=== PATIENT | female | born 1980 | race Caucasian/White ===

== ENCOUNTER 2018-04-16 11:31 | Inpatient (IN) ==
[2018-04-16] MEDS ORDERED: *HR* FentaNYL (PF) 100 MCG/2 ML VIAL IVP ONE (11:46)
[2018-04-16] MEDS ORDERED: Ondansetron 4 MG/2 ML VIAL IVP ONE (11:46)
[2018-04-16] MEDS ORDERED: Ketorolac 15 MG/ML VIAL IVP ONE (11:46)
--- NOTE | 2018-04-16 11:48 | Emergency Department Note ---
Disposition Clinical Impression: Kidney stone Disposition: Admitted As Inpatient Condition: Good General Adult HPI - General Chief complaint: ED Abdominal Pain Stated complaint: ABD Pain From UC Time Seen by Provider: 04/16/18 11:36 - History of Present Illness Pain Scale: 9 - Related Data Home Medications Medication Instructions Recorded Confirmed Cetirizine HCl/Pseudoephedrine 1 tab PO DAILY 04/16/18 04/16/18 [Eql All Day Allergy-D Tablet] Allergies Allergy/AdvReac Type Severity Reaction Status Date / Time sulfamethoxazole Allergy Hives Verified 04/16/18 11:36 [From Bactrim] trimethoprim [From Bactrim] Allergy Hives Verified 04/16/18 11:36 prednisone AdvReac Vomiting Verified 04/16/18 11:36 Past Medical History - Past Medical History Medical history: Reports: non-contributory, kidney stones Surgical history: Reports: ureteral stent Psychiatric history: Reports: no psych history 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 - Social History Smoking Status: Current every day smoker Smokeless Tobacco Status: No Alcohol use: Reports: none Drug use: Reports: none Course Vital Signs Temperature 98.2 F 04/16/18 11:34 Pulse Rate 117 04/16/18 11:34 Respiratory Rate 18 04/16/18 11:34 Blood Pressure 127/87 04/16/18 11:34 O2 Sat by Pulse Oximetry 100 04/16/18 11:34 Temperature 102.9 F H 04/16/18 18:40 Pulse Rate 126 04/16/18 18:40 Respiratory Rate 16 04/16/18 18:40 Blood Pressure 94/54 04/16/18 18:40 O2 Sat by Pulse Oximetry 91 04/16/18 18:40 Oxygen Delivery Oxygen Delivery Room Air Medical Decision Making - Lab Data Result diagrams: 04/16/18 12:18 04/16/18 12:18 Lab Results 04/16/18 04/16/18 04/16/18 Range/Units 12:01 12:18 12:18 WBC 26.2 H (4.3-11.1) K/mcL RBC 4.23 (3.82-4.97) M/mcL Hgb 12.4 (11.5-15.4) g/dL Hct 37.0 (35.3-44.9) % MCV 87.5 (83.0-100.0) fL MCH 29.3 (28.0-33.3) pg MCHC 33.5 (31.6-35.5) g/dL RDW 13.2 (11.5-14.5) % Plt Count 255 (140-400) K/mcL MPV 10.5 (9.4-12.4) fL Immature Gran % 0.7 (0-4) % Seg Neutrophils % 92.9 % Lymphocytes % 3.5 % Monocytes % 2.4 % Eosinophils % 0.3 % Basophils % 0.2 % Neutrophils # 24.3 H (1.6-8.9) K/mcL Lymphocytes # 0.9 (0.6-4.6) K/mcL Monocytes # 0.6 (0.0-1.3) K/mcL Eosinophils # 0.1 (0.0-0.6) K/mcL Basophils # 0.1 (0.0-0.2) K/mcL Platelet Estimate Normal (Normal) Hypochromasia Present A (Not Present) Sodium 135 L (136-145) mEq/L Potassium 3.7 (3.5-5.1) mEq/L Chloride 101 (98-107) mEq/L Carbon Dioxide 28 (23-29) mEq/L BUN 19 (6-20) mg/dL Creatinine 1.16 (0.60-1.20) mg/dL Est GFR ( Amer) > 60 (> 60) Est GFR (Non-Af Amer) 53 L (> 60) BUN/Creatinine Ratio 16 (6-26) Glucose 114 H (70-105) mg/dL Calculated Osmolality 283 (280-300) Lactic Acid (0.5-2.2) mmol/L Calcium 9.9 (8.6-10.3) mg/dL Total Bilirubin 0.5 (0.3-1.0) mg/dL AST 14 (13-39) Units/L ALT 13 (7-52) Units/L Alkaline Phosphatase 90 (34-104) Units/L Serum Total Protein 6.9 (6.4-8.9) g/dL Albumin 3.9 (3.5-5.7) g/dL Globulin 3.0 (2.4-3.5) g/dL Albumin/Globulin Ratio 1.3 (1.1-2.2) Serum , Qual (Negative) Urine Color Dark Yellow (Yellow) Urine Clarity Cloudy A (Clear) Urine pH 5.5 (5.0-8.0) pH Units Ur Specific [place] 1.022 (1.010-1.025) Urine Protein 100 H (Neg-Trace) mg/dL Urine Glucose (UA) Normal (Normal) mg/dL Urine Ketones Negative (Negative) mg/dL Urine Blood Small H (Negative) Urine Nitrite Negative (Negative) Urine Bilirubin Negative (Negative) Urine Urobilinogen Normal (Normal) mg/dL Ur Leukocyte Esterase Moderate H (Negative) Urine Microscopic RBC 3-5 H (0-3) per hpf Urine Microscopic WBC TNTC H (0-3) per hpf Ur Squamous Epith Cells Many H (None-Few) per lpf Urine Bacteria Few (None-Few) per hpf Hyaline Casts None Seen (None-Few) per lpf 04/16/18 04/16/18 Range/Units 12:18 19:09 WBC (4.3-11.1) K/mcL RBC (3.82-4.97) M/mcL Hgb (11.5-15.4) g/dL Hct (35.3-44.9) % MCV (83.0-100.0) fL MCH (28.0-33.3) pg MCHC (31.6-35.5) g/dL RDW (11.5-14.5) % Plt Count (140-400) K/mcL MPV (9.4-12.4) fL Immature Gran % (0-4) % Seg Neutrophils % % Lymphocytes % % Monocytes % % Eosinophils % % Basophils % % Neutrophils # (1.6-8.9) K/mcL Lymphocytes # (0.6-4.6) K/mcL Monocytes # (0.0-1.3) K/mcL Eosinophils # (0.0-0.6) K/mcL Basophils # (0.0-0.2) K/mcL Platelet Estimate (Normal) Hypochromasia (Not Present) Sodium (136-145) mEq/L Potassium (3.5-5.1) mEq/L Chloride (98-107) mEq/L Carbon Dioxide (23-29) mEq/L BUN (6-20) mg/dL Creatinine (0.60-1.20) mg/dL Est GFR ( Amer) (> 60) Est GFR (Non-Af Amer) (> 60) BUN/Creatinine Ratio (6-26) Glucose (70-105) mg/dL Calculated Osmolality (280-300) Lactic Acid 2.2 (0.5-2.2) mmol/L Calcium (8.6-10.3) mg/dL Total Bilirubin (0.3-1.0) mg/dL AST (13-39) Units/L ALT (7-52) Units/L Alkaline Phosphatase (34-104) Units/L Serum Total Protein (6.4-8.9) g/dL Albumin (3.5-5.7) g/dL Globulin (2.4-3.5) g/dL Albumin/Globulin Ratio (1.1-2.2) Serum , Qual Negative (Negative) Urine Color (Yellow) Urine Clarity (Clear) Urine pH (5.0-8.0) pH Units Ur Specific [place] (1.010-1.025) Urine Protein (Neg-Trace) mg/dL Urine Glucose (UA) (Normal) mg/dL Urine Ketones (Negative) mg/dL Urine Blood (Negative) Urine Nitrite (Negative) Urine Bilirubin (Negative) Urine Urobilinogen (Normal) mg/dL Ur Leukocyte Esterase (Negative) Urine Microscopic RBC (0-3) per hpf Urine Microscopic WBC (0-3) per hpf Ur Squamous Epith Cells (None-Few) per lpf Urine Bacteria (None-Few) per hpf Hyaline Casts (None-Few) per lpf Attestation Statement - Attestation Attestation: I examined this patient and my medical decision-making was reviewed with the Resident Physician. I agree with the documented findings, disposition and treatment plan as described except to the extent set forth below. [id number] time provided Patient arrives complaining of right-sided flank pain radiating to her right lower quadrant. She was sent from the urgent care. She is very uncomfortable appearing on exam. She has a history of recurrent kidney stones requiring extraction.
[2018-04-16 12:20] LABS: Bilirubin,Urine Negative (Negative); Blood,Urine Small (Negative); Clarity,Urine Cloudy (Clear); Color,Urine Dark Yellow (Yellow); Glucose,Urine (UA) Normal (Normal); Ketones,Urine Negative (Negative); Leukocyte Esterase,Urine Moderate (Negative); Nitrite,Urine Negative (Negative); PH,Urine 5.5 pH Units (5.0-8.0); Protein,Urine 100 mg/dL (Neg-Trace); Specific Gravity,Urine 1.022 (1.010-1.025); Urobilinogen,Urine Normal (Normal)
--- NOTE | 2018-04-16 12:20 | Emergency Department Note ---
Disposition Clinical Impression: Kidney stone Disposition: Admitted As Inpatient Condition: Good Forms: ED Satisfaction Letter, Work/School Release Time of Disposition: 14:50 General Adult HPI - General Chief complaint: ED Abdominal Pain Stated complaint: ABD Pain From UC Time Seen by Provider: 04/16/18 11:36 Source: patient, family Mode of arrival: ambulatory Limitations: no limitations Nursing Notes Reviewed: Yes Vital Signs Reviewed: Yes - History of Present Illness HPI Narrative: 37 yo female presents as a transfer patient from [facility] with the chief complaint of abdominal pain. She states she has a history of 8 kidney stones and her back pain feels similar to previous kidney stones. She states this is somewhat different than her normal kidney stones though because she is also having right lower abdominal pain, fever, chills, chest pain. She feels nauseous but has not vomited. She states her whole body hurts and she has never felt like this before. She rates this pain as a 10 out of 10. She took 2 Tylenol this morning without significant relief of her pain. At [place] they tested her urine and then transferred her here because she says they found a UTI. She does admit to some dysuria but does not note any blood in her urine. Pain Scale: 9 - Related Data Home Medications Medication Instructions Recorded Confirmed Cetirizine HCl/Pseudoephedrine 1 tab PO DAILY 04/16/18 04/16/18 [Eql All Day Allergy-D Tablet] Allergies Allergy/AdvReac Type Severity Reaction Status Date / Time sulfamethoxazole Allergy Hives Verified 04/16/18 11:36 [From Bactrim] trimethoprim [From Bactrim] Allergy Hives Verified 04/16/18 11:36 prednisone AdvReac Vomiting Verified 04/16/18 11:36 All systems ED: reviewed and negative except as stated. Review of Systems: As Per HPI Constitutional: Reports: fever, chills, weakness Eyes: Denies: vision change Cardiovascular: Reports: chest pain. Denies: palpitations, dyspnea on exertion, orthopnea, syncope Respiratory: Denies: cough, dyspnea, wheezes Gastrointestinal: Reports: abdominal pain, nausea. Denies: vomiting, diarrhea, constipation Genitourinary: Reports: dysuria. Denies: hematuria Musculoskeletal: Reports: back pain. 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 Absent: tenderness, meningismus, lymphadenopathy - Chest Chest inspection: Present: normal inspection, tenderness. Absent: rash - Respiratory Respiratory exam: Present: normal lung sounds bilaterally. Absent: wheezes - Cardiovascular Cardiovascular exam: Present: normal rhythm, tachycardia - Abdominal Exam Abdominal exam: Present: soft, tenderness. Absent: distention, guarding, rebound, rigidity, Teresa's sign Abdominal tenderness: Present: RLQ - Extremities Exam Extremities exam: Present: normal inspection. Absent: tenderness, pedal edema - Back Exam Back exam: Present: CVA tenderness (R), CVA tenderness (L). Absent: muscle spasm, vertebral tenderness - Neurological Exam Neurological exam: Present: alert, oriented X3, CN II-XII intact - Psychiatric Psychiatric exam: Present: anxious - Skin Skin exam: Present: warm, intact, diaphoresis Course Vital Signs Temperature 98.2 F 04/16/18 11:34 Pulse Rate 117 04/16/18 11:34 Respiratory Rate 18 04/16/18 11:34 Blood Pressure 127/87 04/16/18 11:34 O2 Sat by Pulse Oximetry 100 04/16/18 11:34 Temperature 98.2 F 04/16/18 11:34 Pulse Rate 117 04/16/18 11:34 Respiratory Rate 18 04/16/18 11:34 Blood Pressure 127/87 04/16/18 11:34 O2 Sat by Pulse Oximetry 100 04/16/18 11:34 Oxygen Delivery Oxygen Delivery Room Air Medical Decision Making - [facility] Narrative Medical decision making narrative: This is a patient with a history of kidney stones who is complaining of bilateral back pain, abdominal pain, fevers. There is concern for recurrent kidney stone as well as pyelonephritis or other intra-abdominal source of infection. We will do screening labs as well as urine, urine , CT of the abdomen and pelvis without contrast. We will give her fentanyl, Toradol, Zofran for her pain and nausea. 1344-the patient was reevaluated and her pain is moderately well-controlled. She states she is still having some waves of pain but she is much more comfortable now. Labs showed a leukocytosis which could just be due to a stress response. Urine was a dirty sample not concerning for infection. CT scan showed a 7 mm obstructing stone on the left side. We will consult urology to see if they will see this patient as an outpatient. 1400 - spoke with Dr. Carlos from urology who states that they will see the patient after she is admitted to the hospitalist. Hospitalist has been paged at this time. 1450 - spoke with the hospitalist Dr. Gallardo who is agreed to accept this patient. He requests the patient be started on Rocephin, which we will give here in the ER. - Medical Records Medical records reviewed: Yes I reviewed the patient's medical records. - Lab Data Lab results reviewed: Yes I reviewed the patient's lab results. Result diagrams: 04/16/18 12:18 04/16/18 12:18 Lab Results 04/16/18 04/16/18 04/16/18 Range/Units 12:01 12:18 12:18 WBC 26.2 H (4.3-11.1) K/mcL RBC 4.23 (3.82-4.97) M/mcL Hgb 12.4 (11.5-15.4) g/dL Hct 37.0 (35.3-44.9) % MCV 87.5 (83.0-100.0) fL MCH 29.3 (28.0-33.3) pg MCHC 33.5 (31.6-35.5) g/dL RDW 13.2 (11.5-14.5) % Plt Count 255 (140-400) K/mcL MPV 10.5 (9.4-12.4) fL Immature Gran % 0.7 (0-4) % Seg Neutrophils % 92.9 % Lymphocytes % 3.5 % Monocytes % 2.4 % Eosinophils % 0.3 % Basophils % 0.2 % Neutrophils # 24.3 H (1.6-8.9) K/mcL Lymphocytes # 0.9 (0.6-4.6) K/mcL Monocytes # 0.6 (0.0-1.3) K/mcL Eosinophils # 0.1 (0.0-0.6) K/mcL Basophils # 0.1 (0.0-0.2) K/mcL Platelet Estimate Normal (Normal) Hypochromasia Present A (Not Present) Sodium 135 L (136-145) mEq/L Potassium 3.7 (3.5-5.1) mEq/L Chloride 101 (98-107) mEq/L Carbon Dioxide 28 (23-29) mEq/L BUN 19 (6-20) mg/dL Creatinine 1.16 (0.60-1.20) mg/dL Est GFR ( Amer) > 60 (> 60) Est GFR (Non-Af Amer) 53 L (> 60) BUN/Creatinine Ratio 16 (6-26) Glucose 114 H (70-105) mg/dL Calculated Osmolality 283 (280-300) Calcium 9.9 (8.6-10.3) mg/dL Total Bilirubin 0.5 (0.3-1.0) mg/dL AST 14 (13-39) Units/L ALT 13 (7-52) Units/L Alkaline Phosphatase 90 (34-104) Units/L Serum Total Protein 6.9 (6.4-8.9) g/dL Albumin 3.9 (3.5-5.7) g/dL Globulin 3.0 (2.4-3.5) g/dL Albumin/Globulin Ratio 1.3 (1.1-2.2) Serum , Qual (Negative) Urine Color Dark Yellow (Yellow) Urine Clarity Cloudy A (Clear) Urine pH 5.5 (5.0-8.0) pH Units Ur Specific [place] 1.022 (1.010-1.025) Urine Protein 100 H (Neg-Trace) mg/dL Urine Glucose (UA) Normal (Normal) mg/dL Urine Ketones Negative (Negative) mg/dL Urine Blood Small H (Negative) Urine Nitrite Negative (Negative) Urine Bilirubin Negative (Negative) Urine Urobilinogen Normal (Normal) mg/dL Ur Leukocyte Esterase Moderate H (Negative) Urine Microscopic RBC 3-5 H (0-3) per hpf Urine Microscopic WBC TNTC H (0-3) per hpf Ur Squamous Epith Cells Many H (None-Few) per lpf Urine Bacteria Few (None-Few) per hpf Hyaline Casts None Seen (None-Few) per lpf 04/16/18 Range/Units 12:18 WBC (4.3-11.1) K/mcL RBC (3.82-4.97) M/mcL Hgb (11.5-15.4) g/dL Hct (35.3-44.9) % MCV (83.0-100.0) fL MCH (28.0-33.3) pg MCHC (31.6-35.5) g/dL RDW (11.5-14.5) % Plt Count (140-400) K/mcL MPV (9.4-12.4) fL Immature Gran % (0-4) % Seg Neutrophils % % Lymphocytes % % Monocytes % % Eosinophils % % Basophils % % Neutrophils # (1.6-8.9) K/mcL Lymphocytes # (0.6-4.6) K/mcL Monocytes # (0.0-1.3) K/mcL Eosinophils # (0.0-0.6) K/mcL Basophils # (0.0-0.2) K/mcL Platelet Estimate (Normal) Hypochromasia (Not Present) Sodium (136-145) mEq/L Potassium (3.5-5.1) mEq/L Chloride (98-107) mEq/L Carbon Dioxide (23-29) mEq/L BUN (6-20) mg/dL Creatinine (0.60-1.20) mg/dL Est GFR ( Amer) (> 60) Est GFR (Non-Af Amer) (> 60) BUN/Creatinine Ratio (6-26) Glucose (70-105) mg/dL Calculated Osmolality (280-300) Calcium (8.6-10.3) mg/dL Total Bilirubin (0.3-1.0) mg/dL AST (13-39) Units/L ALT (7-52) Units/L Alkaline Phosphatase (34-104) Units/L Serum Total Protein (6.4-8.9) g/dL Albumin (3.5-5.7) g/dL Globulin (2.4-3.5) g/dL Albumin/Globulin Ratio (1.1-2.2) Serum , Qual Negative (Negative) Urine Color (Yellow) Urine Clarity (Clear) Urine pH (5.0-8.0) pH Units Ur Specific [place] (1.010-1.025) Urine Protein (Neg-Trace) mg/dL Urine Glucose (UA) (Normal) mg/dL Urine Ketones (Negative) mg/dL Urine Blood (Negative) Urine Nitrite (Negative) Urine Bilirubin (Negative) Urine Urobilinogen (Normal) mg/dL Ur Leukocyte Esterase (Negative) Urine Microscopic RBC (0-3) per hpf Urine Microscopic WBC (0-3) per hpf Ur Squamous Epith Cells (None-Few) per lpf Urine Bacteria (None-Few) per hpf Hyaline Casts (None-Few) per lpf - Radiology Data Radiology results reviewed: Yes I reviewed the patient's radiology results.
[2018-04-16 12:23] LABS: Bacteria,Urine Few per hpf (None-Few); Hyaline Casts,Urine None Seen per lpf (None-Few); Squamous Epithelial Cell,Urine Many per lpf (None-Few); WBC,Urine TNTC per hpf (0-3)
[2018-04-16 12:43] LABS: Basophils % 0.2 %; Red Cell Distribution Width 13.2 % (11.5-14.5)
[2018-04-16 12:45] LABS: Basophils # 0.1 K/mcL (0.0-0.2); Eosinophils # 0.1 K/mcL (0.0-0.6); Eosinophils % 0.3 %; Hemoglobin 12.4 g/dL (11.5-15.4); Immature Granulocytes % 0.7 % (0-4); Lymphocytes # 0.9 K/mcL (0.6-4.6); Lymphocytes % 3.5 %; Mean Corpuscular HGB Conc 33.5 g/dL (31.6-35.5); Mean Corpuscular Hemoglobin 29.3 pg (28.0-33.3); Mean Corpuscular Volume 87.5 fL (83.0-100.0); Mean Platelet Volume 10.5 fL (9.4-12.4); Monocytes # 0.6 K/mcL (0.0-1.3); Monocytes % 2.4 %; Platelet Count 255 K/mcL (140-400); Red Blood Count 4.23 M/mcL (3.82-4.97); Segmented Neutrophils % 92.9 %
[2018-04-16 12:50] LABS: Neutrophils # 24.3 K/mcL (1.6-8.9)
[2018-04-16 12:53] LABS: Hypochromasia Present (Not Present); Platelet Estimate Normal (Normal)
[2018-04-16] MEDS ORDERED: 0.9 % Sodium Chloride 1,000 ML IVC ONE ×2 (12:53→22:25)
[2018-04-16 12:57] LABS: Alanine Aminotransferase 13 Units/L (7-52); Albumin 3.9 g/dL (3.5-5.7); Albumin/Globulin Ratio 1.3 (1.1-2.2); Alkaline Phosphatase 90 Units/L (34-104); Aspartate Amino Transferase 14 Units/L (13-39); BUN/Creatinine Ratio 16 (6-26); Bilirubin,Total 0.5 mg/dL (0.3-1.0); Blood Urea Nitrogen 19 mg/dL (6-20); Calcium 9.9 mg/dL (8.6-10.3); Carbon Dioxide 28 mEq/L (23-29); Chloride 101 mEq/L (98-107); Glucose 114 mg/dL (70-105); Osmolality,Calculated 283 (280-300); Potassium 3.7 mEq/L (3.5-5.1); Sodium 135 mEq/L (136-145); Total Protein 6.9 g/dL (6.4-8.9); eGFR For Non-African Americans 53 (> 60)
[2018-04-16] MEDS ORDERED: cefTRIAXone 2,000 MG in Water for inj. (sterile) 20 ML 20 ML IVP ONE (14:46)
--- NOTE | 2018-04-16 15:59 | Internal Med History&Physical ---
Date of Encounter: 04/16/18 Time of Encounter: 15:59 Internal Medicine - H&P: HPI History of present illness: Ms. Freedman is a 37 year old female with history of kidney stones in the past presented as a transfer from [facility] for acute onset of 10/10 left flank pain. Patient believes this is kidney stone pain but states this is worse than prior kidney stones that she has had in the past. She admits to having chills, nausea, and vomiting. No other past medical history. She has had poor PO intake over several days. She took Tylenol at home without any relief. She was transferred to [place] for further workup and UTI management. A CT scan here in ED showed nephrolithiasis in left UPJ with hydronephrosis. Her creatinine is within normal limits at 1.16 but no known baseline. Her labs showed leukocytosis of 26k. She was afebrile on admission with normal BP but tachycardic at 117 bpm. She was given 1 L normal saline and Rocephin IV. Past Med Surg Social Fam HX - Past Medical History Medical history: non-contributory, kidney stones Psychiatric history: no psych history - Past Surgical History Surgical History: ureteral stent Additional surgical history: lithitripsy - Social History Smoking Status: Current every day smoker Smokeless Tobacco Status: No Alcohol use: none Drug use: none - Family History Mother Living Status: Still Living Hx Family Respiratory Disorders: Yes Father Living Status: Still Living Hx Family Cardiac Disorders: Yes Hx Family Respiratory Disorders: Yes Internal Medicine - H&P: Meds Cetirizine HCl/Pseudoephedrine [Eql All Day Allergy-D Tablet] 1 tab PO DAILY 04/16/18 [History] Allergy/AdvReac Type Severity Reaction Status Date / Time sulfamethoxazole Allergy Hives Verified 04/16/18 11:36 [From Bactrim] trimethoprim [From Bactrim] Allergy Hives Verified 04/16/18 11:36 prednisone AdvReac Vomiting Verified 04/16/18 11:36 All Systems PM: A 10-system review of systems was performed and is negative for pertinent findings except as documented above in the HPI. - Constitutional Vitals: Temp Pulse Resp BP Pulse Ox 98.2 F 117 18 127/87 100 04/16/18 15:36 04/16/18 15:36 04/16/18 15:36 12/05/18 15:36 04/16/18 15:36 General appearance: Present: no acute distress, answers questions appropriately Exam: . - Head Head exam: Present: atraumatic, normocephalic - Eye Eye exam: Present: PERRL, conjuntiva pink, sclera anicteric Pupils: Present: PERRL - ENT ENT exam: Present: mucous membranes dry - Neck Neck exam general surgery: Present: supple, trachea midline. Absent: lymphadenopathy - Respiratory Respiratory exam: Present: CTAB. Absent: accessory muscle use, rales, rhonchi, wheezes - Cardiovascular Cardiovascular exam: Present: +S1, +S2, tachycardia. Absent: diastolic murmur, gallop, rubs, systolic murmur - GI/Abdominal GI/Abdominal exam: Present: normal bowel sounds, soft, no peritoneal signs. Absent: distended, tenderness - Extremities Exam Extremities exam: Present: warm, radial pulses palpable and symmetrical. Absent: calf tenderness, cyanotic, pedal edema - Neurological Exam Neurological exam: Present: CN II-XII intact, oriented X3, no focal deficits. Absent: pronater drift, facial droop, speech deficit - Skin Skin exam: Present: dry, intact Internal Med - H&P Results - Labs CBC & Chem 7: 04/16/18 12:18 04/16/18 12:18 Labs: Short CBC 04/16/18 Range/Units 12:18 WBC 26.2 H (4.3-11.1) K/mcL Hgb 12.4 (11.5-15.4) g/dL Hct 37.0 (35.3-44.9) % Plt Count 255 (140-400) K/mcL Neutrophils # 24.3 H (1.6-8.9) K/mcL BMP 04/16/18 12:18 Sodium 135 L Potassium 3.7 Chloride 101 Carbon Dioxide 28 BUN 19 Creatinine 1.16 Glucose 114 H Calcium 9.9 Liver Function 04/16/18 Range/Units 12:18 Total Bilirubin 0.5 (0.3-1.0) mg/dL AST 14 (13-39) Units/L ALT 13 (7-52) Units/L Alkaline Phosphatase 90 (34-104) Units/L Albumin 3.9 (3.5-5.7) g/dL Urine 04/16/18 Range/Units 12:01 Urine Color Dark Yellow (Yellow) Urine Clarity Cloudy A (Clear) Urine pH 5.5 (5.0-8.0) pH Units Ur Specific [place] 1.022 (1.010-1.025) Urine Protein 100 H (Neg-Trace) mg/dL Urine Glucose (UA) Normal (Normal) mg/dL - Impressions ITS Impressions Abdomen/Pelvis CT 04/16/18 11:46 IMPRESSION: 1. There is an obstructing left UPJ calculus measuring 7 mm with hydronephrosis. 2. Low-density lesions in ovaries require no additional imaging follow-up. D/ / Kaleb Mckeon / Kaleb Mckeon Interpreting Provider: Kaleb Mckeon - Assessment and plan (1) Left nephrolithiasis Current Visit: Yes Status: Acute Assessment and plan: Urology consulted in ED, recommendations appreciated. Continue supportive care with IV fluid hydration, pain and nausea medications. (2) Hydronephrosis Current Visit: Yes Status: Acute Assessment and plan: Plan as above. 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 Possibly related to stress response and dehydration vs UTI (unclear at this point because urine sample is contaminate d.). She is afebrile, RR normal, and BP is in normal limits. Will repeat urine cultures sine other was contaminated, blood cultures. Obtain blood cultures. Note that Abx already given in ED. Continue IV fluid hydration - Time Spent With Patient Total time spent is greater than 50% in coordination of care (as documented) at patient's floor/unit and/or counseling patient:
[2018-04-16] MEDS ORDERED: Naloxone 0.4 MG/ML INJ IVP PRN (16:06)
[2018-04-16] MEDS ORDERED: Ondansetron 4 MG/2 ML VIAL IVP PRN (16:06)
[2018-04-16] MEDS ORDERED: *HR* HYDROcodone/Acet 5/325 mg TABLET PO PRN (16:06)
[2018-04-16] MEDS: OXYCODONE Oral CONC 10 MG/0.5 ML ORAL.SYG SL PRN ×2 (16:52→22:21)
[2018-04-16] MEDS: 0.9 % Sodium Chloride 1,000 ML IVC SCH ×3 (16:54→23:48)
[2018-04-16] MEDS: Acetaminophen 325 MG TABLET PO PRN (18:49)
[2018-04-16] MEDS ORDERED: Acetaminophen IV 1,000 MG/100 ML INFUS..BTL IVPB ONE (18:54)
--- NOTE | 2018-04-16 22:56 | Urology - Consult Note ---
Date of Encounter: 04/17/18 Time of Encounter: 22:54 - Assessment and Plan (1) Hydronephrosis Current Visit: Yes Status: Acute Assessment and plan: 7 mm left UPJ calculus. U/A not suggestive of infection despite fever earlier this evening. Plan: Added on for OR schedule tomorrow. 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 Some fevers earlier this evening and tachycardia. Fever down and tachycardia appears to be responding to fluids. Patient on Rocephin. CT images reviewed and interpreted independently. 7 mm obstructing calculus at left UPJ. U/A not suggestive of UTI, but given clinical picture urgent urinary diversion indicated. Plan: patient has been added on for urinary diversion tomorrow. Urology CN:HPI Consult date: 04/16/18 Reason for consult Urology: Hydronephrosis Requesting physician: Tiffany Murray History of present illness: Ms. Freedman is a 37 year old female with history of kidney stones in the past presented as a transfer from [facility] for acute onset of 10/10 left flank pain. Patient believes this is kidney stone pain but states this is worse than prior kidney stones that she has had in the past. She admits to having chills, nausea, and vomiting. No other past medical history. She has had poor PO intake over several days. She took Tylenol at home without any relief. She was transferred to [place] for further workup and UTI management. A CT scan here in ED showed nephrolithiasis in left UPJ with hydronephrosis. Her creatinine is within normal limits at 1.16 but no known baseline. Her labs showed leukocytosis of 26k. She was afebrile on admission with normal BP but tachycardic at 117 bpm. She was given 1 L normal saline and Rocephin IV. Past Med Surg Social Fam HX - Past Medical History Medical history: non-contributory, kidney stones Psychiatric history: no psych history - Past Surgical History Surgical History: ureteral stent Additional surgical history: lithitripsy - Social History Smoking Status: Current every day smoker Smokeless Tobacco Status: No Alcohol use: none Drug use: none - Family History Mother Living Status: Still Living Hx Family Respiratory Disorders: Yes Father Living Status: Still Living Hx Family Cardiac Disorders: Yes Hx Family Respiratory Disorders: Yes Medications and Allergies Cetirizine HCl/Pseudoephedrine [Eql All Day Allergy-D Tablet] 1 tab PO DAILY 04/16/18 [History] Allergy/AdvReac Type Severity Reaction Status Date / Time sulfamethoxazole Allergy Hives Verified 04/16/18 11:36 [From Bactrim] trimethoprim [From Bactrim] Allergy Hives Verified 04/16/18 11:36 prednisone AdvReac Vomiting Verified 04/16/18 11:36 Review of Systems - Constitutional chills, fever(s) - EENT Nose, mouth and throat: no dry mouth, no sore throat - Cardiovascular no chest pain, no diaphoresis - Respiratory no cough, no dyspnea - Gastrointestinal abdominal pain, nausea - Genitourinary Genitourinary: flank pain, no dysuria - Musculoskeletal no muscle weakness, no numbness - Integumentary no lesions, no rash - Neurological no confusion, no sensory deficit - Psychiatric no anxiety, no confusion - Hematologic/Lymphatic no easy bleeding, no easy bruising - Allergic/Immunologic no throat swelling, no wheezing Exam Initial Vital Signs Temp Pulse Resp BP Pulse Ox 98.2 F 117 18 127/87 100 04/16/18 11:34 04/16/18 11:34 04/16/18 11:34 04/16/18 11:34 04/16/18 11:34 - General physical appearance Present: well developed, moderate pain - Eyes Present: normal ocular movement - ENT Present: normal nares, normal mucosa - Neck Present: trachea midline - Respiratory Present: normal respiratory effort - Cardiovascular Cardiovascular exam IM: RRR - Abdomen Abdomen: Present: soft. Absent: guarding, distended - Integumentary Present: no rash, no growths, no abnormal pigmentation - Neurologic Present: normal coordination - Musculoskeletal Present: normal gait Urology Results - Labs 04/17/18 05:36 04/17/18 04:30 Abnormal lab results WBC 26.2 K/mcL (4.3-11.1) H 04/16/18 12:18 Neutrophils # 24.3 K/mcL (1.6-8.9) H 04/16/18 12:18 Hypochromasia Present (Not Present) A 04/16/18 12:18 Sodium 135 mEq/L (136-145) L 04/16/18 12:18 Est GFR (Non-Af Amer) 53 (> 60) L 04/16/18 12: Glucose 114 mg/dL (70-105) H 04/16/18 12:18 Urine Clarity Cloudy (Clear) A 04/16/18 12: Urine Protein 100 mg/dL (Neg-Trace) H 04/16/18 12: Urine Blood Small (Negative) H 04/16/18 12: Ur Leukocyte Esterase Moderate (Negative) H 04/16/18 12:01 Urine Microscopic RBC 3-5 per hpf (0-3) H 04/16/18 12: Urine Microscopic WBC TNTC per hpf (0-3) H 04/16/18 12: Ur Squamous Epith Cells Many per lpf (None-Few) H 04/16/18 12: Diabetes panel 04/16/18 Range/Units 12: Sodium 135 L (136-145) mEq/L Potassium 3.7 (3.5-5.1) mEq/L Chloride 101 (98-107) mEq/L Carbon Dioxide 28 (23-29) mEq/L BUN 19 (6-20) mg/dL Creatinine 1.16 (0.60-1.20) mg/dL Glucose 114 H (70-105) mg/dL Calcium 9.9 (8.6-10.3) mg/dL AST 14 (13-39) Units/L ALT 13 (7-52) Units/L Alkaline Phosphatase 90 (34-104) Units/L Albumin 3.9 (3.5-5.7) g/dL Calcium panel 04/16/18 Range/Units 12:18 Calcium 9.9 (8.6-10.3) mg/dL Albumin 3.9 (3.5-5.7) g/dL Pituitary panel 04/16/18 Range/Units 12:18 Sodium 135 L (136-145) mEq/L Potassium 3.7 (3.5-5.1) mEq/L Chloride 101 (98-107) mEq/L Carbon Dioxide 28 (23-29) mEq/L BUN 19 (6-20) mg/dL Creatinine 1.16 (0.60-1.20) mg/dL Glucose 114 H (70-105) mg/dL Calcium 9.9 (8.6-10.3) mg/dL Adrenal panel 04/16/18 Range/Units 12:18 Sodium 135 L (136-145) mEq/L Potassium 3.7 (3.5-5.1) mEq/L Chloride 101 (98-107) mEq/L Carbon Dioxide 28 (23-29) mEq/L BUN 19 (6-20) mg/dL Creatinine 1.16 (0.60-1.20) mg/dL Glucose 114 H (70-105) mg/dL Calcium 9.9 (8.6-10.3) mg/dL Total Bilirubin 0.5 (0.3-1.0) mg/dL AST 14 (13-39) Units/L ALT 13 (7-52) Units/L Alkaline Phosphatase 90 (34-104) Units/L Albumin 3.9 (3.5-5.7) g/dL All other labs normal. - Imaging CT scan - abdomen: image reviewed CT scan - pelvis: image reviewed (Images reviewed and interpreted independently) Consult Discharge Plan - Plan Referrals: Kayli Thompson, FILAMENT MAKER [Primary Care Provider] -
[2018-04-17 00:19] LABS: Albumin 3.1 g/dL (3.5-5.7); Albumin/Globulin Ratio 1.1 (1.1-2.2); Bilirubin,Total 0.4 mg/dL (0.3-1.0); Calcium 8.2 mg/dL (8.6-10.3); Globulin 2.7 g/dL (2.4-3.5); Potassium 3.8 mEq/L (3.5-5.1); Total Protein 5.8 g/dL (6.4-8.9)
[2018-04-17 00:26] LABS: Basophils % 0.3 %; Eosinophils # 0.1 K/mcL (0.0-0.6); Eosinophils % 0.6 %; Hematocrit 33.2 % (35.3-44.9); Hemoglobin 10.9 g/dL (11.5-15.4); Immature Granulocytes % 0.4 % (0-4); Lymphocytes # 1.5 K/mcL (0.6-4.6); Lymphocytes % 9.7 %; Mean Corpuscular HGB Conc 32.8 g/dL (31.6-35.5); Mean Corpuscular Hemoglobin 29.2 pg (28.0-33.3); Mean Platelet Volume 10.3 fL (9.4-12.4); Monocytes # 0.4 K/mcL (0.0-1.3); Monocytes % 2.8 %; Neutrophils # 13.5 K/mcL (1.6-8.9); Platelet Count 196 K/mcL (140-400); Red Blood Count 3.73 M/mcL (3.82-4.97); Red Cell Distribution Width 13.3 % (11.5-14.5); Segmented Neutrophils % 86.2 %
[2018-04-17] MEDS ORDERED: D5% in Water 1,000 ML IVC PRN ×2 (00:41→18:14)
[2018-04-17] MEDS ORDERED: *HR* Dextrose 50 % in Water (Syg) 50 ML SYRINGE IVP PRN ×2 (00:41→18:14)
[2018-04-17] MEDS ORDERED: Dextrose Gel 15 GM/37.5 ML TUBE PO PRN ×4 (00:41→18:14)
[2018-04-17 04:59] LABS: BUN/Creatinine Ratio 20 (6-26); Blood Urea Nitrogen 23 mg/dL (6-20); Calcium 7.9 mg/dL (8.6-10.3); Carbon Dioxide 17 mEq/L (23-29); Chloride 114 mEq/L (98-107); Glucose 104 mg/dL (70-105); Osmolality,Calculated 292 (280-300); Sodium 139 mEq/L (136-145); eGFR For Non-African Americans 52 (> 60)
[2018-04-17 06:17] LABS: Basophils % 0.2 %; Eosinophils % 0.1 %; Hematocrit 28.6 % (35.3-44.9); Hemoglobin 9.7 g/dL (11.5-15.4); Immature Granulocytes % 0.6 % (0-4); Lymphocytes # 0.8 K/mcL (0.6-4.6); Lymphocytes % 5.6 %; Mean Corpuscular HGB Conc 33.9 g/dL (31.6-35.5); Mean Corpuscular Hemoglobin 29.7 pg (28.0-33.3); Mean Corpuscular Volume 87.5 fL (83.0-100.0); Mean Platelet Volume 10.7 fL (9.4-12.4); Monocytes # 0.4 K/mcL (0.0-1.3); Platelet Count 174 K/mcL (140-400); Red Blood Count 3.27 M/mcL (3.82-4.97); Red Cell Distribution Width 13.4 % (11.5-14.5); Segmented Neutrophils % 90.5 %
[2018-04-17] MEDS: 0.9 % Sodium Chloride 1,000 ML IVC SCH (07:57)
--- NOTE | 2018-04-17 08:27 | Internal Med Progress Note ---
<Dillon Giles - Last Filed: 04/17/18 15:56> Hospitalist Progress Note - Encounter Date of Encounter: 04/17/18 Time of Encounter: 14:51 - Subjective Interval History: Patient was seen and examined this morning, she is laying in bed with the covers over her eyes. Patient states that she continues to have 2 out of 10 abdominal and left flank pain. She states that this is significantly improved since her admission. She states that she continues to have slight nausea, no vomiting. Patient also had fevers and chills overnight, MAXIMUM TEMPERATURE of 102.9 yesterday. She was also found to be hypotensive, patient denies any lightheaded or dizziness during these episodes. - Exam Vitals: Temp Pulse Resp BP Pulse Ox 100.4 F H 108 16 88/50 97 04/17/18 08:08 04/17/18 08:08 04/17/18 08:08 04/17/18 08:08 04/17/18 08:08 Exam: Gen.: Patient in no acute distress, laying in bed with covers over her eyes, pleasant and cooperative during exam, warm to touch Head: Atraumatic, normocephalic Chest: Tachycardic, regular rhythm, no murmurs gallops or rubs Respiratory: Clear to auscultation bilaterally, no wheezing, rales or rhonchi Abdomen: Tenderness to palpation throughout the abdomen, greatest to the left lateral aspect, with CVA tenderness, no guarding or rebound Neuro: Patient is alert and oriented 3, sensation intact and patient moving all 4 extremities without difficulty Psych: Patient is normal mentation, good affect - Assessment and Plan (1) Sepsis Current Visit: Yes Status: Acute Assessment and Plan: Patient is a transfer [facility] following left flank pain with history of kidney stones and nausea, fevers and chills. CT of the abdomen was performed which showed a 7 mm renal stones to the left UPJ with hydronephrosis. While in the emergency Department patient was started on Rocephin as well as fluids. On arrival patient had white blood count of 26, was tachycardic, patient was normotensive with a blood pressure of 127/87. Overnight, patient had MAXIMUM TEMPERATURE of 102.9, continued to be tachycardic in the 100's, also became hypotensive in the 80s to 90s systolic. MAP has been maintained. Patient continued to be febrile despite Tylenol and IV Tylenol. Patient was given a total of 4 L normal saline. Patient had only slight increase in blood pressure secondary to the fluids. Urinalysis does show moderate leuk esterase, positive for WBCs. The patient was cathetered, and microscopic hematuria was found. There are many squamous epithelial cells as well. A urine culture has been sent. Today white blood cells still remains elevated at 14.3, patient remains tachycardic however throughout the days despite fluid management is hypotensive. Plan Concern for urosepsis at this point in time, continue Rocephin day two cultures pending We will change patient from normal saline to lactated Ringer's at this point in time as patient has become hyperchloremic and carbon dioxide of 17. Continue Tylenol for fevers Concern that patient is moving from sepsis to severe sepsis as patient is refractory to fluid management. We will obtain lactic acid at this point in time, continue to monitor CBC, BMP as well as blood pressure Patient may start responding, as her heart rate has already started to trend down, however her blood pressure remained hypotensive Last blood pressure check following LR replacement was 84/52 We will closely followed this patient, as she could decompensate quickly. My attending is called ICU, and made them aware of the patient as a patient continues to have low blood pressures she will need to be transferred for higher care (2) Left nephrolithiasis Current Visit: Yes Status: Acute Assessment and Plan: Patient today on examination had continued left flank pain CT of the abdomen and pelvis showed a 7 mm stone in the left renal UPJ with hydronephrosis Plan Per urology patient will have ureteral diversion procedure - Time Spent with Patient Total time spent is greater than 50% in coordination of care (as documented) at patient's floor/unit and/or counseling patient: Internal Medicine: Result - Labs CBC & Chem 7: 04/17/18 05:36 04/17/18 04:30 Labs: Short CBC 04/16/18 04/16/18 04/17/18 Range/Units 12:18 23:48 05:36 WBC 26.2 H 15.6 H 14.3 H (4.3-11.1) K/mcL Hgb 12.4 10.9 L D 9.7 L (11.5-15.4) g/dL Hct 37.0 33.2 L 28.6 L (35.3-44.9) % Plt Count 255 196 174 (140-400) K/mcL Neutrophils # 24.3 H 13.5 H 13.0 H (1.6-8.9) K/mcL BMP 04/16/18 04/16/18 04/17/18 12:18 23:48 04:30 Sodium 135 L 136 139 Potassium 3.7 3.8 4.0 Chloride 101 108 H 114 H Carbon Dioxide 28 22 L 17 L BUN 19 22 H 23 H Creatinine 1.16 1.37 H 1.17 Glucose 114 H 104 104 Calcium 9.9 8.2 L 7.9 L Liver Function 04/16/18 04/16/18 Range/Units 12:18 23:48 Total Bilirubin 0.5 0.4 (0.3-1.0) mg/dL AST 14 26 (13-39) Units/L ALT 13 20 (7-52) Units/L Alkaline Phosphatase 90 99 (34-104) Units/L Albumin 3.9 3.1 L (3.5-5.7) g/dL Urine 04/16/18 Range/Units 12:01 Urine Color Dark Yellow (Yellow) Urine Clarity Cloudy A (Clear) Urine pH 5.5 (5.0-8.0) pH Units Ur Specific Roland 1.022 (1.010-1.025) Urine Protein 100 H (Neg-Trace) mg/dL Urine Glucose (UA) Normal (Normal) mg/dL - Impressions Impressions Abdomen/Pelvis CT 04/16/18 11:46 IMPRESSION: 1. There is an obstructing left UPJ calculus measuring 7 mm with hydronephrosis. 2. Low-density lesions in ovaries require no additional imaging follow-up. D/ / Kaleb Mckeon / Kaleb Mckeon Interpreting Provider: Kaleb Mckeon Consult Discharge Plan - Plan Referrals: Kayli Thompson, YOUTH NUTRITIONAL MONITOR [Primary Care Provider] - <Tiffany Murray - Last Filed: 04/17/18 17:03> Hospitalist Progress Note - Encounter Date of Encounter: 04/17/18 - Exam Vitals: Temp Pulse Resp BP Pulse Ox 102.3 F H 117 18 84/52 99 04/17/18 15:24 04/17/18 15:24 04/17/18 15:24 04/17/18 15:24 04/17/18 15:24 - Assessment and Plan (1) Left nephrolithiasis Current Visit: Yes Status: Acute (2) Hydronephrosis Current Visit: Yes Status: Acute (3) SIRS (systemic inflammatory response syndrome) Current Visit: Yes Status: Acute - Time Spent with Patient Total time spent is greater than 50% in coordination of care (as documented) at patient's floor/unit and/or counseling patient: Internal Medicine: Result - Labs CBC & Chem 7: 04/17/18 05:36 04/17/18 04:30 Labs: Short CBC 04/16/18 04/17/18 Range/Units 23:48 05:36 WBC 15.6 H 14.3 H (4.3-11.1) K/mcL Hgb 10.9 L D 9.7 L (11.5-15.4) g/dL Hct 33.2 L 28.6 L (35.3-44.9) % Plt Count 196 174 (140-400) K/mcL Neutrophils # 13.5 H 13.0 H (1.6-8.9) K/mcL BMP 04/16/18 04/17/18 23:48 04:30 Sodium 136 139 Potassium 3.8 4.0 Chloride 108 H 114 H Carbon Dioxide 22 L 17 L BUN 22 H 23 H Creatinine 1.37 H 1.17 Glucose 104 104 Calcium 8.2 L 7.9 L Liver Function 04/16/18 Range/Units 23:48 Total Bilirubin 0.4 (0.3-1.0) mg/dL AST 26 (13-39) Units/L ALT 20 (7-52) Units/L Alkaline Phosphatase 99 (34-104) Units/L Albumin 3.1 L (3.5-5.7) g/dL - Attending Attestation I have examined this patient [id number] and my medical decision-making was re viewed with the Resident Physician. I agree with the documented findings, disposition and treatment plan as described except to the extent set forth below. 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
[2018-04-17] MEDS ORDERED: cefTRIAXone 1,000 MG in Water for inj. (sterile) 20 ML 10 ML IVP SCH (09:00)
[2018-04-17] MEDS: Acetaminophen 325 MG TABLET PO PRN (10:12)
[2018-04-17] MEDS ORDERED: 0.9 % Sodium Chloride 1,000 ML IVC SCH (10:45)
--- NOTE | 2018-04-17 11:31 | Urology Progress Note ---
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 Patient has been evaluated by Dr. Carlos and consented for surgery. Patient is awaiting surgery later this afternoon for cystoscopy and left ureteral stent placement. Patient has no new concerns. Will reevaluate patient postoperatively. Progress Note Subjective: no new complaints Narrative: Patient seen and examined sitting upright in bed in no apparent distress. Patient is voiding without difficulty. Patient has remained nothing by mouth. Patient denies any new questions about impending procedure. Objective Initial Vital Signs Temp Pulse Resp BP Pulse Ox 98.2 F 117 18 127/87 100 04/16/18 11:34 04/16/18 11:34 04/16/18 11:34 04/16/18 11:34 04/16/18 11:34 - General physical appearance Present: well developed, no distress, no pain - Respiratory Present: normal expansion, normal respiratory effort - Abdomen Present: soft - Integumentary Present: no rash, no abnormal pigmentation - Musculoskeletal Present: normal posture - Psychiatric Present: oriented to time, oriented to person, oriented to place, speech is normal, memory intact - Labs 04/17/18 05:36 04/17/18 04:30 Diabetes panel 04/16/18 04/16/18 04/17/18 Range/Units : 23:48 04:30 Sodium 135 L 136 139 (136-145) mEq/L Potassium 3.7 3.8 4.0 (3.5-5.1) mEq/L Chloride 101 108 H 114 H (98-107) mEq/L Carbon Dioxide 28 22 L 17 L (23-29) mEq/L BUN 19 22 H 23 H (6-20) mg/dL Creatinine 1.16 1.37 H 1.17 (0.60-1.20) mg/dL Glucose 114 H 104 104 (70-105) mg/dL Calcium 9.9 8.2 L 7.9 L (8.6-10.3) mg/dL AST 14 26 (13-39) Units/L ALT 13 20 (7-52) Units/L Alkaline Phosphatase 90 99 (34-104) Units/L Albumin 3.9 3.1 L (3.5-5.7) g/dL Calcium panel 04/16/18 04/16/18 04/17/18 Range/Units : 23:48 04:30 Calcium 9.9 8.2 L 7.9 L (8.6-10.3) mg/dL Albumin 3.9 3.1 L (3.5-5.7) g/dL Pituitary panel 04/16/18 04/16/18 04/17/18 Range/Units : 23:48 04:30 Sodium 135 L 136 139 (136-145) mEq/L Potassium 3.7 3.8 4.0 (3.5-5.1) mEq/L Chloride 101 108 H 114 H (98-107) mEq/L Carbon Dioxide 28 22 L 17 L (23-29) mEq/L BUN 19 22 H 23 H (6-20) mg/dL Creatinine 1.16 1.37 H 1.17 (0.60-1.20) mg/dL Glucose 114 H 104 104 (70-105) mg/dL Calcium 9.9 8.2 L 7.9 L (8.6-10.3) mg/dL Adrenal panel 04/16/18 04/16/18 04/17/18 Range/Units : 23:48 04:30 Sodium 135 L 136 139 (136-145) mEq/L Potassium 3.7 3.8 4.0 (3.5-5.1) mEq/L Chloride 101 108 H 114 H (98-107) mEq/L Carbon Dioxide 28 22 L 17 L (23-29) mEq/L BUN 19 22 H 23 H (6-20) mg/dL Creatinine 1.16 1.37 H 1.17 (0.60-1.20) mg/dL Glucose 114 H 104 104 (70-105) mg/dL Calcium 9.9 8.2 L 7.9 L (8.6-10.3) mg/dL Total Bilirubin 0.5 0.4 (0.3-1.0) mg/dL AST 14 26 (13-39) Units/L ALT 13 20 (7-52) Units/L Alkaline Phosphatase 90 99 (34-104) Units/L Albumin 3.9 3.1 L (3.5-5.7) g/dL Consult Discharge Plan - Plan Referrals: Kayli Thompson, DETENTION OFFICER [Primary Care Provider] - <Geronimo Carlos Gabi - Last Filed: 04/17/18 12:38> Date of Encounter: 04/17/18 - Assessment and Plan (1) Hydronephrosis Current Visit: Yes Status: Acute Qualifiers: Hydronephrosis type: with ureteropelvic junction obstruction Qualified Code(s): Q62.11 - Congenital occlusion of ureteropelvic junction (2) Left nephrolithiasis Current Visit: Yes Status: Acute (3) Kidney stone Current Visit: Yes Status: Acute Assessment and plan: Patient seen and examined independently. I am in agreement with the assessment and plan as outlined by our Urologic Surgery Department Physician Global Marketing Coordinator, Terri. Objective Initial Vital Signs Temp Pulse Resp BP Pulse Ox 98.2 F 117 18 127/87 100 04/16/18 11:34 04/16/18 11:34 04/16/18 11:34 04/16/18 11:34 04/16/18 11:34 - Labs 04/17/18 05:36 04/17/18 04:30 Diabetes panel 04/16/18 04/16/18 04/17/18 Range/Units 12: 23:48 04:30 Sodium 135 L 136 139 (136-145) mEq/L Potassium 3.7 3.8 4.0 (3.5-5.1) mEq/L Chloride 101 108 H 114 H (98-107) mEq/L Carbon Dioxide 28 22 L 17 L (23-29) mEq/L BUN 19 22 H 23 H (6-20) mg/dL Creatinine 1.16 1.37 H 1.17 (0.60-1.20) mg/dL Glucose 114 H 104 104 (70-105) mg/dL Calcium 9.9 8.2 L 7.9 L (8.6-10.3) mg/dL AST 14 26 (13-39) Units/L ALT 13 20 (7-52) Units/L Alkaline Phosphatase 90 99 (34-104) Units/L Albumin 3.9 3.1 L (3.5-5.7) g/dL Calcium panel 04/16/18 04/16/18 04/17/18 Range/Units : 23:48 04:30 Calcium 9.9 8.2 L 7.9 L (8.6-10.3) mg/dL Albumin 3.9 3.1 L (3.5-5.7) g/dL Pituitary panel 04/16/18 04/16/18 04/17/18 Range/Units 12:18 23:48 04:30 Sodium 135 L 136 139 (136-145) mEq/L Potassium 3.7 3.8 4.0 (3.5-5.1) mEq/L Chloride 101 108 H 114 H (98-107) mEq/L Carbon Dioxide 28 22 L 17 L (23-29) mEq/L BUN 19 22 H 23 H (6-20) mg/dL Creatinine 1.16 1.37 H 1.17 (0.60-1.20) mg/dL Glucose 114 H 104 104 (70-105) mg/dL Calcium 9.9 8.2 L 7.9 L (8.6-10.3) mg/dL Adrenal panel 04/16/18 04/16/18 04/17/18 Range/Units : 23:48 04:30 Sodium 135 L 136 139 (136-145) mEq/L Potassium 3.7 3.8 4.0 (3.5-5.1) mEq/L Chloride 101 108 H 114 H (98-107) mEq/L Carbon Dioxide 28 22 L 17 L (23-29) mEq/L BUN 19 22 H 23 H (6-20) mg/dL Creatinine 1.16 1.37 H 1.17 (0.60-1.20) mg/dL Glucose 114 H 104 104 (70-105) mg/dL Calcium 9.9 8.2 L 7.9 L (8.6-10.3) mg/dL Total Bilirubin 0.5 0.4 (0.3-1.0) mg/dL AST 14 26 (13-39) Units/L ALT 13 20 (7-52) Units/L Alkaline Phosphatase 90 99 (34-104) Units/L Albumin 3.9 3.1 L (3.5-5.7) g/dL
[2018-04-17] MEDS ORDERED: Ringers Solution, Lactated 1,000 ML IVC SCH ×2 (12:00→18:14)
[2018-04-17] MEDS ORDERED: 0.9 % Sodium Chloride 1,000 ML IVC ONE (13:58)
--- NOTE | 2018-04-17 15:49 | Pulmonology Consult Note ---
<Zia Hooks - Last Filed: 04/17/18 16:11> Date of Encounter: 04/17/18 Time of Encounter: 15:45 Assessment and Plan (1) Sepsis Current Visit: Yes Status: Acute Sepsis secondary to complicated UTI Patient has 7mm Left UPJ renal calculi with UTI Febrile at 102.3, HR 117, RR 18, BP 68-120/40-87, Average MAP ~60. WBC 26.2 -> 15.6 -> 14.3. Lactic Acid 1.6 The patient has received a total of 4.5L fluid since arrival, continues to have low pressures On exam, I took manual pressure and found it to be 104/72 with fluid bolus running She is currently on Rocephin day 2, cultures pending Scheduled for ureteral stent with urology today Recommendations She seems to be responding to fluids today, but has dry mucous membranes on exam still. Recommend one more liter fluid bolus now, continue to monitor BP. She does appear stable at this time. If BP continues to drop, transfer to ICU for management Repeat lactic acid Continue Rocephin Qualifiers: Sepsis type: sepsis due to unspecified organism Qualified Code(s): A41.9 - Sepsis, unspecified organism (2) Urinary tract infection Current Visit: Yes Status: Acute Acute complicated UTI with obstructing renal calculi Management per Urology Qualifiers: Urinary tract infection type: acute pyelonephritis Qualified Code(s): N10 - Acute pyelonephritis (3) Kidney stone Current Visit: Yes Status: Acute Management per urology History of Present Illness Consult date: 04/17/18 Requesting physician: Tiffany Murray Reason for consult: other (sepsis) Chief complaint: UTI History of present illness: Mrs. Freedman is a 37-year-old woman with history of kidney stones who presented as a transfer from [facility] with acute onset left flank pain that she associates with the similar pain has kidney stones in the past. In association with this she also is experiencing chills, nausea and vomiting. She says that in the past day she is been unable to eat. She apparently was unable to relieve this pain with Tylenol at home and so she went to the hospital. She did have initial workup for UTI and additionally a CT scan which demonstrated a large nephrolithiasis in the UPJ with hydronephrosis. She was transferred to [facility] for further management, however in addition of this she was found to have a severe leukocytosis of 26. Over the course of her admission, the patient apparently became tachycardia, hypotensive and febrile and there was concern for worsening sepsis. Pulmonology was consultative for concern that the patient may need to be transferred to the ICU for management of severe sepsis or septic shock in the setting of urinary tract infection with r enal calculi. Past Med Surg Social Fam HX - Past Medical History Medical history: non-contributory, kidney stones Psychiatric history: no psych history - Past Surgical History Surgical History: ureteral stent Additional surgical history: lithitripsy - Social History Smoking Status: Current every day smoker Smokeless Tobacco Status: No Alcohol use: none Drug use: none - Family History Father Living Status: Still Living Hx Family Cardiac Disorders: Yes Hx Family Respiratory Disorders: Yes Mother Living Status: Still Living Hx Family Respiratory Disorders: Yes Medications and Allergies Cetirizine HCl/Pseudoephedrine [Eql All Day Allergy-D Tablet] 1 tab PO DAILY 04/16/18 [History] Allergy/AdvReac Type Severity Reaction Status Date / Time sulfamethoxazole Allergy Hives Verified 04/16/18 11:36 [From Bactrim] trimethoprim [From Bactrim] Allergy Hives Verified 04/16/18 11:36 prednisone AdvReac Vomiting Verified 04/16/18 11:36 All Systems: The remainder of the systems were reviewed and are negative - Constitutional Constitutional: chills, fever(s) - EENT Eyes: no loss of vision Nose, mouth and throat: dry mouth - Cardiovascular Cardiovascular: no chest pain, no dyspnea, no palpitations - Respiratory Respiratory: no cough - Gastrointestinal Gastrointestinal: abdominal pain, nausea, no cramping, no vomiting - Genitourinary Genitourinary: flank pain, urinary frequency, no difficulty urinating - Musculoskeletal Musculoskeletal: no weakness, no arthralgias, no stiffness - Integumentary Integumentary: no erythema, no rash - Neurological Neurological: no disequilibrium, no dizziness - Endocrine Endocrine: fatigue, no cold intolerance - Hematologic/Lymphatic Hematologic/Lymphatic: no easy bleeding - Allergic/Immunologic Allergic/Immunologic: no itchy eyes Physical Examination Vital Signs: Vital Signs, Last 4 Hours Temp Pulse Resp BP Pulse Ox 04/17/18 15:24 102.3 F H 117 18 84/52 99 04/17/18 13:51 88/44 General appearance: no acute distress Eyes: nonicteric ENT: oropharynx dry Neck: supple, no lymphadenopathy Effort: normal Inspection: normal Auscultation: bilateral: clear Cardiovascular: regular rate and rhythm (rapid) Gastrointestinal: normoactive bowel sounds, non-distended Integumentary: normal Extremities: no cyanosis, no edema, no clubbing Musculoskeletal: no deformities, ROM normal normal mental status, non-focal exam mood appropriate, affect normal Results - Laboratory Findings CBC and BMP: 04/17/18 05:36 04/17/18 04:30 Abnormal lab findings: Abnormal lab results WBC 14.3 K/mcL (4.3-11.1) H 04/17/18 05:36 RBC 3.27 M/mcL (3.82-4.97) L 04/17/18 05:36 Hgb 9.7 g/dL (11.5-15.4) L 04/17/18 05:36 Hct 28.6 % (35.3-44.9) L 04/17/18 05:36 Neutrophils # 13.0 K/mcL (1.6-8.9) H 04/17/18 05:36 Hypochromasia Present (Not Present) A 04/16/18 12:18 Chloride 114 mEq/L (98-107) H 04/17/18 04:30 Carbon Dioxide 17 mEq/L (23-29) L 04/17/18 04:30 BUN 23 mg/dL (6-20) H 04/17/18 04:30 Est GFR (Non-Af Amer) 52 (> 60) L 04/17/18 04:30 Calcium 7.9 mg/dL (8.6-10.3) L 04/17/18 04:30 Serum Total Protein 5.8 g/dL (6.4-8.9) L 04/16/18 23:48 Albumin 3.1 g/dL (3.5-5.7) L 04/16/18 23:48 Urine Clarity Cloudy (Clear) A 04/16/18 12:01 Urine Protein 100 mg/dL (Neg-Trace) H 04/16/18 12:01 Urine Blood Small (Negative) H 04/16/18 12:01 Ur Leukocyte Esterase Moderate (Negative) H 04/16/18 12:01 Urine Microscopic RBC 3-5 per hpf (0-3) H 04/16/18 12:01 Urine Microscopic WBC TNTC per hpf (0-3) H 04/16/18 12:01 Ur Squamous Epith Cells Many per lpf (None-Few) H 04/16/18 12:01 - Microbiology Findings Microbiology Findings: Microbiology, Last 48 Hours 04/16/18 17:02 Blood Culture - Preliminary Peripheral Venipuncture Culture is incubating and being continuously monitored for growth. Final report to follow. 04/16/18 17:02 Blood Culture - Preliminary Peripheral Venipuncture Culture is incubating and being continuously monitored for growth. Final report to follow. - Clinical Findings Intake & Output: Intake & Output 04/16/18 04/17/18 04/17/18 23:59 07:59 15:59 Intake Total 1999 / 1999 0 / 0 10 Output Total 325 / 325 450 / 450 500 / 500 Balance 1675 / 1675 -450 / -450 -490 / -490 Weight 89.4 kg Consult Discharge Plan - Plan Referrals: Kayli Thompson, ENGINEERING TEST SPECIALIST [Primary Care Provider] - <Kaley Pina - Last Filed: 04/18/18 09:30> Date of Encounter: 04/18/18 All Systems: The remainder of the systems were reviewed and are negative Physical Examination Vital Signs: Vital Signs, Last 4 Hours Temp Pulse Resp BP Pulse Ox 04/17/18 15:24 102.3 F H 117 18 84/52 99 04/17/18 13:51 88/44 Results - Laboratory Findings CBC and BMP: 04/18/18 03:28 04/18/18 03:28 Abnormal lab findings: Abnormal lab results WBC 14.3 K/mcL (4.3-11.1) H 04/17/18 05:36 RBC 3.27 M/mcL (3.82-4.97) L 04/17/18 05:36 Hgb 9.7 g/dL (11.5-15.4) L 04/17/18 05:36 Hct 28.6 % (35.3-44.9) L 04/17/18 05:36 Neutrophils # 13.0 K/mcL (1.6-8.9) H 04/17/18 05:36 Hypochromasia Present (Not Present) A 04/16/18 12:18 Chloride 114 mEq/L (98-107) H 04/17/18 04:30 Carbon Dioxide 17 mEq/L (23-29) L 04/17/18 04:30 BUN 23 mg/dL (6-20) H 04/17/18 04:30 Est GFR (Non-Af Amer) 52 (> 60) L 04/17/18 04:30 Calcium 7.9 mg/dL (8.6-10.3) L 04/17/18 04:30 Serum Total Protein 5.8 g/dL (6.4-8.9) L 04/16/18 23:48 Albumin 3.1 g/dL (3.5-5.7) L 04/16/18 23:48 Urine Clarity Cloudy (Clear) A 04/16/18 12:01 Urine Protein 100 mg/dL (Neg-Trace) H 04/16/18 12:01 Urine Blood Small (Negative) H 04/16/18 12:01 Ur Leukocyte Esterase Moderate (Negative) H 04/16/18 12:01 Urine Microscopic RBC 3-5 per hpf (0-3) H 04/16/18 12:01 Urine Microscopic WBC TNTC per hpf (0-3) H 04/16/18 12:01 Ur Squamous Epith Cells Many per lpf (None-Few) H 04/16/18 12:01 - Microbiology Findings Microbiology Findings: Microbiology, Last 48 Hours 04/16/18 17:02 Blood Culture - Preliminary Peripheral Venipuncture Culture is incubating and being continuously monitored for growth. Final report to follow. 04/16/18 17:02 Blood Culture - Preliminary Peripheral Venipuncture Culture is incubating and being continuously monitored for growth. Final report to follow. - Clinical Findings Intake & Output: Intake & Output 04/17/18 04/17/18 04/17/18 07:59 15:59 23:59 Intake Total 0 / 0 1000 / 1000 Output Total 450 / 450 500 / 500 Balance -450 / -450 -490 / -490 1000 / 1000 Weight 89.4 kg - Attending Attestation I examined this patient and my medical decision-making was reviewed with the Resident Physician. I agree with the documented findings, disposition and treatment plan as described except to the extent set forth below. Patient seen and examined. I was called by hospitalist to assess this patient. Labs, radiology, chart personally reviewed. Agree with resident's history and physical, assessment, plan with following comments: ASSOCIATE ACCOUNT MANAGER: Patient follows commands, Pulmonary: Acceptable oxygenation and ventilation. Cardiovascular: Borderline hypotensive and respond to IV fluid. We have personally repeated her blood pressure and there is evidence of improvement and they suspect tachycardia will improve as soon as she receive more fluid and treating underlying cause of her sepsis. GI: Nutrition per dietary and GI prophylaxis per routine Heme: DVT prophylaxis per routine ID: Continue antibiotics and plan to de-escalation Pt with sepsis and needs more fluid resuscitation and if no improvement or lactic acid is elevated, patient can be transferred to ICU Renal; urine out put and renal funtion reviewed. Endorcine: blood glucose is monitored Lines: all lines checked and no evidence of infections Skin: skin care to prevent pressure ulcers per nursing routine care Thanks for consultation. This was discussed with primary team and please call for any questions. One more time if patient does not improve with fluid resuscitation or an elevated lactic acid patient can be transferred to ICU.
--- NOTE | 2018-04-17 16:36 | Anesthesia Evaluation PreOp ---
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: Denies Any Significant HX Other Medical History: Renal (kidney stones, urosepsis) Anesthesia History: Past Anesthesia, Problems (PONV) Test: Negative (04/16/2018) Alcohol Use: none Drug use: none Medications and Allergies Cetirizine HCl/Pseudoephedrine [Eql All Day Allergy-D Tablet] 1 tab PO DAILY 04/16/18 [History] Allergy/AdvReac Type Severity Reaction Status Date / Time sulfamethoxazole Allergy Hives Verified 04/16/18 11:36 [From Bactrim] trimethoprim [From Bactrim] Allergy Hives Verified 04/16/18 11:36 prednisone AdvReac Vomiting Verified 04/16/18 11:36 - Meds/Allergy Pre-op Review Medications Reviewed: Yes Allergies Reviewed: Yes Beta Blockers on Current Med List: No Anesthesia Results - Labs 04/17/18 05:36 04/17/18 04:30 Laboratory Tests 04/16/18 12:18 Serum , Qual Negative Anesthesia Exam Vital Signs/O2 Sat/Glucose, Most Recent Temp Pulse Resp BP Pulse Ox 102.3 F H 117 18 84/52 99 04/17/18 15:24 04/17/18 15:24 04/17/18 15:24 04/17/18 15:24 04/17/18 15:24 Blood Glucose* 91 Height: 5'2''/1.57m Weight: 197 lbs/89.4 kg NPO (# of Hours): 8 Pain Scale: 4 Pain Scale Used: Numeric (1 - 10) - HEENT Pupil (Motor): EOMI Mallampati: II Teeth: Normal (chipped upper front tooth) Oral Opening: Greater than 3 - SUPERVISOR WATERPROOFING LOC: Oriented SUPERVISOR WATERPROOFING Motor: Normal LUE, Normal RLE, Normal LLE, Normal Face, Deficit RUE SUPERVISOR WATERPROOFING Sensory: Normal: RUE, LUE, RLE, LLE, Face - Cardiac Rhythm: Regular Murmur: None - Pulmonary Breath Sounds: bilateral Clear (diminished BS left) Respiratory Effort: Symmetrical Anesthesia Assess/Plan ASA Score: 3 Level of consciousness: Cooperative, Oriented, Tranquil Anesthetic Plan: General Monitoring Plan: Standard Monitors Recovery Plan: PACU
[2018-04-17] MEDS ORDERED: Isovue-300 50 ML VIAL IVP ONE (16:53)
[2018-04-17] MEDS ORDERED: Lidocaine -MPF 2% 2 ML VIAL ONE (16:53)
[2018-04-17] MEDS ORDERED: *HR* Propofol 200 MG/20 ML VIAL IVP ONE (16:53)
[2018-04-17] MEDS ORDERED: *HR* Midazolam HCl 2 MG/2 ML VIAL ONE (16:56)
[2018-04-17] MEDS ORDERED: *HR* FentaNYL (PF) 100 MCG/2 ML VIAL ONE (16:57)
--- NOTE | 2018-04-17 16:59 | Operative Note ---
Date of procedure: 04/17/18 Pre-op diagnosis: Left ureteral calculus, left hydronephrosis, urosepsis Post-op diagnosis: same Procedure: Cystoscopy, left retrograde ureteral pyelography with intraoperative interpretation of all radiographic images in real time by surgeon to facilitate procedure, left double-J stent placement Implants: 6 x 24 left double-J stent Complications: None Anesthesia: GETA Surgeon: Geronimo Carlos Was there an preschool assistant teacher present: No Estimated blood loss (cc): 0 Specimen: None Condition: stable Disposition: PACU Procedure in Detail: Very pleasant 37-year-old lady with a history of nephrolithiasis. She is admitted to the emergency department with left-sided flank pain where CT imaging revealed an obstructing 7 mm left ureteral calculus. The patient has an active UTI she is at emerging signs of sepsis and thus has been added on for urgent urinary diversion by stenting. The patient brought the operating theater placed on table supine position. Is identified by name date of then administered a general anesthetic. The patient placed in dorsal lithotomy prepped and draped in a sterile fashion. At this point cystoscope was inserted into the urethral meatus and advanced toward the bladder under direct visualization. There were no mucosal abnormalities identified. An open-ended catheter was placed the tip of the left ureteral orifice gentle injection of contrast a left retrograde ureteropyelogram was performed. Real-time interpretation of all radiographic images by surgeon revealed normal distal ureter to the level stone was a filling defect and then hydroureteronephrosis above. Based on this finding urinary diversion with stenting as indicated. Under fluoroscopic guidance a Glidewire was advanced through the open-ended catheter around the stone into the left renal pelvis. Over the existing Glidewire under fluoroscopic guidance a 6 x 24 double-J stent was advanced. Once the stent was felt in good position Glidewire was removed proximal distal ends of the stent curled in good position. This felt to be a good result. This ended the operative procedure.
[2018-04-17] MEDS ORDERED: *HR* HYDROmorphone (PF) 1 MG/ML SYRINGE IVP PRN (17:29)
[2018-04-17] MEDS ORDERED: Ondansetron 4 MG/2 ML VIAL IVP ONE (17:29)
[2018-04-17] MEDS ORDERED: *HR* Promethazine 25 MG/ML VIAL IVP PRN (17:29)
[2018-04-17] MEDS ORDERED: *HR* OxyCODONE Immed Rel 5 MG TABLET PO PRN (17:29)
--- NOTE | 2018-04-17 17:58 | Anesthesia Evaluation Post Op ---
Date of Encounter: 04/17/18 Time of Encounter: 17:56 - Vital Signs Vital Signs: htis is the patients baseline since she has been hospitalized Vital Signs Temperature 98.2 F 04/16/18 11:34 Pulse Rate 117 04/16/18 11:34 Respiratory Rate 18 04/16/18 11:34 Blood Pressure 127/87 04/16/18 11:34 O2 Sat by Pulse Oximetry 100 04/16/18 11:34 Temperature 98.6 F 04/17/18 17:34 Pulse Rate 92 04/17/18 17:54 Respiratory Rate 16 04/17/18 17:54 Blood Pressure 82/57 04/17/18 17:54 O2 Sat by Pulse Oximetry 92 04/17/18 17:54 Oxygen Delivery Oxygen Delivery Room Air - Lungs Lungs: Clear Ascult./Percussion - Airway Airway: Non-obstructed - Cardiovascular Regular Rate - Mental Status Mental Status: Alert & Oriented, Answers Appropriately - Pain Pain Scale: 0 Pain Scale used: Numeric (1 - 10) - Nausea Vomiting Nausea Vomiting: Not Present - Hydration Hydration: Tolerates oral liquids - Discharge PostOp Status: Transfer Patient to floor
[2018-04-17] MEDS ORDERED: *HR* HYDROcodone/Acet 5/325 mg TABLET PO PRN (18:14)
[2018-04-17] MEDS ORDERED: OXYCODONE Oral CONC 10 MG/0.5 ML ORAL.SYG SL PRN (20:00)
[2018-04-17] MEDS ORDERED: Naloxone 0.4 MG/ML INJ IVP PRN (20:00)
[2018-04-17] MEDS ORDERED: Ondansetron 4 MG/2 ML VIAL IVP PRN (20:00)
[2018-04-18] MEDS: Acetaminophen 325 MG TABLET PO PRN ×2 (02:51→11:56)
[2018-04-18 04:10] LABS: Basophils % 0.1 %; Hematocrit 29.6 % (35.3-44.9); Hemoglobin 9.7 g/dL (11.5-15.4); Immature Granulocytes % 0.6 % (0-4); Lymphocytes # 0.8 K/mcL (0.6-4.6); Lymphocytes % 11.8 %; Mean Corpuscular HGB Conc 32.8 g/dL (31.6-35.5); Mean Corpuscular Hemoglobin 28.8 pg (28.0-33.3); Mean Corpuscular Volume 87.8 fL (83.0-100.0); Mean Platelet Volume 11.1 fL (9.4-12.4); Monocytes # 0.4 K/mcL (0.0-1.3); Monocytes % 5.6 %; Neutrophils # 5.7 K/mcL (1.6-8.9); Platelet Count 134 K/mcL (140-400); Red Blood Count 3.37 M/mcL (3.82-4.97); Red Cell Distribution Width 13.5 % (11.5-14.5); Segmented Neutrophils % 81.9 %
[2018-04-18 04:22] LABS: BUN/Creatinine Ratio 21 (6-26); Blood Urea Nitrogen 19 mg/dL (6-20); Calcium 8.8 mg/dL (8.6-10.3); Carbon Dioxide 21 mEq/L (23-29); Chloride 110 mEq/L (98-107); Glucose 158 mg/dL (70-105); Osmolality,Calculated 292 (280-300); Sodium 138 mEq/L (136-145); eGFR For Non-African Americans > 60 (> 60)
--- NOTE | 2018-04-18 08:07 | Urology Progress Note ---
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 Patient is remained afebrile overnight, and vital signs are stable. Discussed postoperative expectations with ureteral stent. Discussed follow-up with Dr. Carlos to planned staged stone extraction procedure, the patient verbalizes understanding. Progress Note Subjective: no new complaints, feels better, tolerating a regular diet, voiding w/o difficulty Narrative: POD #1. Patient seen and examined sitting upright in chair eating breakfast in no apparent distress. Patient is tolerating normal diet without nausea or vomiting. Patient is voiding without difficulty. Patient denies fever, chills, flank pain. Objective Initial Vital Signs Temp Pulse Resp BP Pulse Ox 98.2 F 117 18 127/87 100 04/16/18 11:34 04/16/18 11:34 04/16/18 11:34 04/16/18 11:34 04/16/18 11:34 - General physical appearance Present: well developed, no distress, no pain - Respiratory Present: normal expansion, normal respiratory effort - Abdomen Present: soft, non tender - Integumentary Present: no rash, no abnormal pigmentation - Musculoskeletal Present: normal posture - Psychiatric Present: oriented to time, oriented to person, oriented to place, speech is normal, memory intact - Labs 04/18/18 03:28 04/18/18 03:28 Diabetes panel 04/18/18 Range/Units 03:28 Sodium 138 (136-145) mEq/L Potassium 4.0 (3.5-5.1) mEq/L Chloride 110 H (98-107) mEq/L Carbon Dioxide 21 L (23-29) mEq/L BUN 19 (6-20) mg/dL Creatinine 0.91 (0.60-1.20) mg/dL Glucose 158 H (70-105) mg/dL Calcium 8.8 (8.6-10.3) mg/dL Calcium panel 04/18/18 Range/Units 03:28 Calcium 8.8 (8.6-10.3) mg/dL Pituitary panel 04/18/18 Range/Units 03:28 Sodium 138 (136-145) mEq/L Potassium 4.0 (3.5-5.1) mEq/L Chloride 110 H (98-107) mEq/L Carbon Dioxide 21 L (23-29) mEq/L BUN 19 (6-20) mg/dL Creatinine 0.91 (0.60-1.20) mg/dL Glucose 158 H (70-105) mg/dL Calcium 8.8 (8.6-10.3) mg/dL Adrenal panel 04/18/18 Range/Units 03:28 Sodium 138 (136-145) mEq/L Potassium 4.0 (3.5-5.1) mEq/L Chloride 110 H (98-107) mEq/L Carbon Dioxide 21 L (23-29) mEq/L BUN 19 (6-20) mg/dL Creatinine 0.91 (0.60-1.20) mg/dL Glucose 158 H (70-105) mg/dL Calcium 8.8 (8.6-10.3) mg/dL Consult Discharge Plan - Plan Referrals: Kayli Thompson, EFRA [Primary Care Provider] - <Geronimo Carlos - Last Filed: 04/18/18 14:29> Date of Encounter: 04/18/18 - Assessment and Plan (1) Hydronephrosis Current Visit: Yes Status: Acute Qualifiers: Hydronephrosis type: with ureteropelvic junction obstruction Qualified Co de(s): Q62.11 - Congenital occlusion of ureteropelvic junction (2) Left nephrolithiasis Current Visit: Yes Status: Acute (3) Kidney stone Current Visit: Yes Status: Acute Assessment and plan: patient seen and examined indepenently. agree with assessment an plan of Terri GALLARDO. patient much more alert this afternoon , but remains confused. follow-up as outpatient in 2 weeks. Objective Initial Vital Signs Temp Pulse Resp BP Pulse Ox 98.2 F 117 18 127/87 100 04/16/18 11:34 04/16/18 11:34 04/16/18 11:34 04/16/18 11:34 12/05/18 11:34 - Labs 04/18/18 03:28 04/18/18 03:28 Diabetes panel 04/18/18 Range/Units 03:28 Sodium 138 (136-145) mEq/L Potassium 4.0 (3.5-5.1) mEq/L Chloride 110 H (98-107) mEq/L Carbon Dioxide 21 L (23-29) mEq/L BUN 19 (6-20) mg/dL Creatinine 0.91 (0.60-1.20) mg/dL Glucose 158 H (70-105) mg/dL Calcium 8.8 (8.6-10.3) mg/dL Calcium panel 04/18/18 Range/Units 03:28 Calcium 8.8 (8.6-10.3) mg/dL Pituitary panel 04/18/18 Range/Units 03:28 Sodium 138 (136-145) mEq/L Potassium 4.0 (3.5-5.1) mEq/L Chloride 110 H (98-107) mEq/L Carbon Dioxide 21 L (23-29) mEq/L BUN 19 (6-20) mg/dL Creatinine 0.91 (0.60-1.20) mg/dL Glucose 158 H (70-105) mg/dL Calcium 8.8 (8.6-10.3) mg/dL Adrenal panel 04/18/18 Range/Units 03:28 Sodium 138 (136-145) mEq/L Potassium 4.0 (3.5-5.1) mEq/L Chloride 110 H (98-107) mEq/L Carbon Dioxide 21 L (23-29) mEq/L BUN 19 (6-20) mg/dL Creatinine 0.91 (0.60-1.20) mg/dL Glucose 158 H (70-105) mg/dL Calcium 8.8 (8.6-10.3) mg/dL
[2018-04-18] MEDS ORDERED: cefTRIAXone 1,000 MG in Water for inj. (sterile) 20 ML 10 ML IVP SCH ×3 (09:00)
[2018-04-18] MEDS ORDERED: levoFLOXacin 750 MG TABLET PO SCH (09:00)
[2018-04-18] MEDS: Cefdinir 300 MG CAPSULE PO SCH ×2 (11:57→19:56)
--- NOTE | 2018-04-18 13:16 | Internal Med Progress Note ---
<Dillon Giles - Last Filed: 04/18/18 14:52> Hospitalist Progress Note - Encounter Date of Encounter: 04/18/18 Time of Encounter: 15:01 - Subjective Interval History: Patient is sitting up, talking to her mother who was in the room. Patient appears in no acute distress, nontoxic. Patient states that she feels significantly improved from yesterday, no fevers or chills or night. No current nausea, vomiting or abdominal pain. She currently states that she has a good appetite. She notes that she did eat [employer] yesterday without difficulty, and has eaten her breakfast this morning. She is aware that she needs to have fo llow-up with urology in about 2 weeks, for stone removal. She is aware and understanding. - Exam Vitals: Temp Pulse Resp BP Pulse Ox 97.7 F 60 19 104/74 93 04/18/18 11:43 04/18/18 11:43 04/18/18 11:43 04/18/18 11:43 04/18/18 11:43 Exam: Gen.: Patient in no acute distress, sitting at the side of the bed, talking with her mother, pleasant and cooperative during exam, Head: Atraumatic, normocephalic Chest: Regular rate, regular rhythm, no murmurs gallops or rubs Respiratory: Clear to auscultation bilaterally, no wheezing, rales or rhonchi Abdomen: Minimal abdominal tenderness, diffuse, minimal tenderness to the lateral aspect. no guarding or rebound Neuro: Patient is alert and oriented 3, sensation intact and patient moving all 4 extremities without difficulty Psych: Patient is normal mentation, good affect - Assessment and Plan (1) Sepsis Current Visit: Yes Status: Resolved Assessment and Plan: Patient is a transfer [facility] following left flank pain with history of kidney stones and nausea, fevers and chills. CT of the abdomen was performed which showed a 7 mm renal stones to the left UPJ with hydronephrosis. While in the emergency Department patient was started on Rocephin as well as fluids. Urinalysis does show moderate leuk esterase, positive for WBCs. The patient was cathetered, and microscopic hematuria was found. There are many squamous epithelial cells as well. A urine culture has been sent. On arrival patient had white blood count of 26, was tachycardic, patient was normotensive with a blood pressure of 127/87. Overnight, patient had MAXIMUM TEMPERATURE of 102.9, continued to be tachycardic in the 100's, also became hypotensive in the 80s to 90s systolic. MAP has been maintained. Patient continued to be febrile despite Tylenol and IV Tylenol. Patient was given a total of 4 L normal saline. Patient had only slight increase in blood pressure secondary to the fluids. Yesterday white blood cells elevated at 14.3, remained tachycardic however throughout the day despite fluid management is hypotensive. Today patient is significantly improved, with a WBC of 6.9, normotensive, regular rate, remained afebrile overnight following urinary diversion per urology Plan Patient is remained afebrile, normotensive, regular rate, WBCs within normal limits today Urine culture is negative We will continue to monitor the patient overnight, with plan to discharge tomorrow as long as patient is able to maintain blood pressure remained afebrile Patient was started on Rocephin, had a total of 2 day course, pulling urology's stent placement, patient was started on Omnicef. Plan to discharge patient with Omnicef antibiotic treatment in light of urosepsis prior to ureteral diversion. (2) Left nephrolithiasis Current Visit: Yes Status: Acute Assessment and Plan: Patient today on examination had continued left flank pain CT of the abdomen and pelvis showed a 7 mm stone in the left renal UPJ with hydronephrosis Plan Patient is postop day 1 with urology ureteral diversion, stent placement. Patient remains afebrile, normotensive, overall significant improved symptoms Outpatient follow-up requested per urology for 2 weeks, with stone removal - Time Spent with Patient Total time spent is greater than 50% in coordination of care (as documented) at patient's floor/unit and/or counseling patient: Internal Medicine: Result - Labs CBC & Chem 7: 04/18/18 03:28 04/18/18 03:28 Labs: Short CBC 04/18/18 Range/Units 03:28 WBC 6.9 D (4.3-11.1) K/mcL Hgb 9.7 L (11.5-15.4) g/dL Hct 29.6 L (35.3-44.9) % Plt Count 134 L (140-400) K/mcL Neutrophils # 5.7 (1.6-8.9) K/mcL BMP 04/18/18 03:28 Sodium 138 Potassium 4.0 Chloride 110 H Carbon Dioxide 21 L BUN 19 Creatinine 0.91 Glucose 158 H Calcium 8.8 - Impressions Impressions Fluoroscopy 04/17/18 17:17 IMPRESSION: 3 fluoroscopic imaging provided during left double-J nephroureteral stent placement. Please see procedure notes for further details. D/ / Lit Hopson / Lit Hopson Interpreting Provider: Lit Hopson Consult Discharge Plan - Plan Referrals: Kayli Thompson CNP [Primary Care Provider] - <Tiffany Murray - Last Filed: 04/18/18 17:07> Hospitalist Progress Note - Encounter Date of Encounter: 04/18/18 - Exam Vitals: Temp Pulse Resp BP Pulse Ox 97.9 F 59 17 118/88 97 04/18/18 15:32 04/18/18 15:32 04/18/18 15:32 04/18/18 15:32 04/18/18 15:32 - Assessment and Plan (1) Left nephrolithiasis Current Visit: Yes Status: Acute (2) Hydronephrosis Current Visit: Yes Status: Acute (3) SIRS (systemic inflammatory response syndrome) Current Visit: Yes Status: Acute - Time Spent with Patient Total time spent is greater than 50% in coordination of care (as documented) at patient's floor/unit and/or counseling patient: Internal Medicine: Result - Labs CBC & Chem 7: 04/18/18 03:28 04/18/18 03:28 Labs: Short CBC 04/18/18 Range/Units 03:28 WBC 6.9 D (4.3-11.1) K/mcL Hgb 9.7 L (11.5-15.4) g/dL Hct 29.6 L (35.3-44.9) % Plt Count 134 L (140-400) K/mcL Neutrophils # 5.7 (1.6-8.9) K/mcL BMP 04/18/18 03:28 Sodium 138 Potassium 4.0 Chloride 110 H Carbon Dioxide 21 L BUN 19 Creatinine 0.91 Glucose 158 H Calcium 8.8 - Impressions Impressions Fluoroscopy 04/17/18 17:17 IMPRESSION: 3 fluoroscopic imaging provided during left double-J nephroureteral stent placement. Please see procedure notes for further details. D/ / Lit Hopson / Lit Hopson Interpreting Provider: Lit Hopson - Attending Attestation I have examined this patient [id number] and my medical decision-making was reviewed with the Resident Physician. I agree with the documented findings, disposition and treatment plan as described except to the extent set forth below. Patient doing a lot better since yesterday. Severe sepsis appears to be resolving. She appears in no acute distress and physical exam is unremarkable. Blood cultures are no growth to date. Cath urine cultures are no growth to date. Blood pressure and hr more stable compared to yesterday. Anticipate discharge tomorrow if remains stable. 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
[2018-04-19 04:02] LABS: Basophils % 0.2 %; Eosinophils # 0.1 K/mcL (0.0-0.6); Eosinophils % 1.1 %; Hematocrit 28.5 % (35.3-44.9); Hemoglobin 9.5 g/dL (11.5-15.4); Immature Granulocytes % 0.6 % (0-4); Lymphocytes # 2.6 K/mcL (0.6-4.6); Mean Corpuscular HGB Conc 33.3 g/dL (31.6-35.5); Mean Corpuscular Hemoglobin 28.6 pg (28.0-33.3); Mean Corpuscular Volume 85.8 fL (83.0-100.0); Mean Platelet Volume 11.2 fL (9.4-12.4); Monocytes # 0.8 K/mcL (0.0-1.3); Monocytes % 8.1 %; Neutrophils # 6.6 K/mcL (1.6-8.9); Platelet Count 146 K/mcL (140-400); Red Blood Count 3.32 M/mcL (3.82-4.97); Red Cell Distribution Width 13.4 % (11.5-14.5)
[2018-04-19 04:21] LABS: BUN/Creatinine Ratio 24 (6-26); Blood Urea Nitrogen 19 mg/dL (6-20); Calcium 8.9 mg/dL (8.6-10.3); Carbon Dioxide 24 mEq/L (23-29); Chloride 108 mEq/L (98-107); Glucose 110 mg/dL (70-105); Osmolality,Calculated 289 (280-300); Potassium 3.6 mEq/L (3.5-5.1); Sodium 138 mEq/L (136-145); eGFR For Non-African Americans > 60 (> 60)
[2018-04-19] MEDS: Cefdinir 300 MG CAPSULE PO SCH (08:11)
[2018-04-19 11:35] VITALS: BP 111/7
--- NOTE | 2018-04-19 11:58 | Discharge Summary ---
Orders not resulted at time of discharge: Pending orders 04/16/18 17:02 Culture,Blood [BC] Routine 04/17/18 17:17 XR KUB [XR] Routine Date of Encounter: 04/19/18 Time of Encounter: 11:55 - Discharge Diagnosis (1) Severe sepsis Priority: Primary Status: Acute (2) Left nephrolithiasis Priority: Secondary Status: Acute (3) Hydronephrosis Priority: Secondary Status: Acute Qualifiers: Hydronephrosis type: with ureteropelvic junction obstruction Qualified Code(s): Q62.11 - Congenital occlusion of ureteropelvic junction (4) Kidney stone Priority: Secondary Status: Acute (5) Urinary tract infection Priority: Secondary Status: Acute Qualifiers: Urinary tract infection type: acute pyelonephritis Qualified Code(s): N10 - Acute pyelonephritis Hospital course: Ms. Freedman is a 37 year old female with history of kidney stones in the past presented as a transfer from [facility] for acute onset of 10/10 left flank pain. Patient believes this is kidney stone pain but states this is worse than prior kidney stones that she has had in the past. She admits to having chills, nausea, and vomiting. No other past medical history. She has had poor PO intake over several days. She took Tylenol at home without any relief. She was transferred to [place] for further workup and UTI management. A CT scan here in ED showed nephrolithiasis in left UPJ with hydronephrosis. Her creatinine is within normal limits at 1.16 but no known baseline. Her labs showed leukocytosis of 26k. She was afebrile on admission with normal BP but tachycardic at 117 bpm. She was given 1 L normal saline and Rocephin IV in the ED. Hospital Course: She was admitted for further treatment. She was positive SIRS criteria and had severe sepsis from UTI and was transferred to step-down unit. She required 5 L of IV fluid hydration because of hypotension. She was placed on Rocephin. Blood cultures were negative, urine cultures were negative, though she had antibiotics prior to sampling cultures. On 04/17/18 she had left ureteral stent placed. She tolerated procedure well. Patient sepsis resolved. Urine and blood cultures were negative. She was discharged home in stable condition. Patient smokes 2 ppd and we did have in depth conversation of smoking cessation. Alternatives to smoking offered and patient declined. - Time Spent with Patient Total time spent providing and/or coordinating discharge services: - Discharge Medications Prescriptions: Cefdinir [Omnicef] 300 mg PO BID #22 capsule Home Medications: Cefdinir [Omnicef] 300 mg PO BID #22 capsule 04/19/18 [Rx] Allergies/Adverse Reactions: Allergy/AdvReac Type Severity Reaction Status Date / Time sulfamethoxazole Allergy Hives Verified 04/16/18 11:36 [From Bactrim] trimethoprim [From Bactrim] Allergy Hives Verified 04/16/18 11:36 prednisone AdvReac Vomiting Verified 04/16/18 11:36 Date of admission: 04/16/18 19:36 Primary care physician: Kayli Thompson CNP Consults: 04/16/18 13:59 Consult to Urology [CONS] Stat Consulting Provider: Urology [place] Reason for Consult: kidney stone Call Completed: Yes 04/17/18 15:38 Consult to Pulmonology [CONS] Routine Consulting Provider: [facility] Reason for Consult: Severe sepsis Call Completed: Yes Discharging clinician: Tiffany Murray - Constitutional Vitals: Temp Pulse Resp BP Pulse Ox 98.4 F 82 20 111/7 90 04/19/18 11:32 04/19/18 11:32 04/19/18 11:32 04/19/18 11:32 04/19/18 11:32 General appearance: Present: no acute distress, answers questions appropriately Exam: . - Head Head exam: Present: atraumatic, normocephalic - Eye Eye exam: Present: PERRL, conjuntiva pink, sclera anicteric Pupils: Present: PERRL - Neck Neck exam general surgery: Present: supple, trachea midline. Absent: lymphadenopathy - Respiratory Respiratory exam: Present: CTAB. Absent: accessory muscle use, rales, rhonchi, wheezes - Cardiovascular Cardiovascular exam: Present: RRR, +S1, +S2. Absent: diastolic murmur, gallop, rubs, systolic murmur - GI/Abdominal GI/Abdominal exam: Present: normal bowel sounds, soft, no peritoneal signs. Absent: distended, tenderness - Extremities Exam Extremities exam: Present: warm, radial pulses palpable and symmetrical. Absent: calf tenderness, cyanotic, pedal edema - Neurological Exam Neurological exam: Present: CN II-XII intact, oriented X3, no focal deficits. Absent: pronater drift, facial droop, speech deficit - Skin Skin exam: Present: dry, intact - Patient Status Disposition: Home, Self-Care Condition: Good Functional capacity at discharge: independent ambulation Overall status at discharge: patient is back to baseline - Discharge Instructions Follow Up With: Kayli Thompson, EFRA [Primary Care Provider] - - Diet and Activity Activity: return to school once cleared by your PCP/specialist Diet: advance to your usual diet
== END 2018-04-19 12:47 | disposition home or self-care (01) | DRG 720 ==
LOC: 3BNU 11:31 → EMEROOARM 11:31 → SUATTDRO 14:54 → 3BNU 16:09 → 2NENU 21:37
PROVIDERS: ADMIT Student in an Organized Health Care Education/Training Program; ATTEND Student in an Organized Health Care Education/Training Program